=== PATIENT | female | born 1995 | race Hispanic/Latino ===

== ENCOUNTER 2024-09-07 16:59 | Emergency (ER) | payer OTHER ==
[~2024-09-07] VITALS: Ht 157.5 cm; Wt 93.0 kg
[~2024-09-07 16:59] MED LIST: CEFDINIR300 MG PO; PYRIDIUM200 MG PO
[2024-09-07 17:17] VITALS: PULSE 73; RESP 16; TEMP 98.2
[2024-09-07 18:01] LABS: INFLUENZA A AG NEGATIVE (NEGATIVE)
[2024-09-07 18:02] LABS: CORONAVIRUS COVID-19 AG NEGATIVE (NEGATIVE); INFLUENZA B AG NEGATIVE (NEGATIVE)
[2024-09-07] MEDS ORDERED: PREDNISONE20 MG PO (18:26)
[2024-09-07] MEDS ORDERED: VENTOLIN HFA18 GM INH (18:26)
[2024-09-07] MEDS ORDERED: AZITHROMYCIN250 MG PO (18:26)
[2024-09-07] MEDS ORDERED: KETOROLAC TROME10 MG PO (18:27)
[2024-09-07 19:18] VITALS: BP 117/84; PULSE 71; RESP 18; TEMP 98.3; O2SAT 99
== END 2024-09-07 19:21 | disposition home or self-care (01) ==
LOC: ER 18:04
DX: R05.9 Cough, unspecified (principal); J06.9 Acute upper respiratory infection, unspecified; R07.89 Other chest pain; Z11.52 Encounter for screening for COVID-19
CPT/HCPCS: 71046; 93005; 99283